=== PATIENT | male | born 1945 ===

== ENCOUNTER 2022-08-30 17:44 | Outpatient (CLI) | payer MEDICARE, BC ==
--- NOTE | 2022-08-31 12:50 | MRI Report ---
PROCEDURE: LUMBAR SPINE WO INDICATIONS: LOW BACK PAIN TECHNIQUE: Noncontrast sagittal T1 spin echo and T2 fast echo, sagittal STIR, axial T1 and T2 fast spin echo thr ough the lumbar spine. In cases with scoliosis, additional coronal T2 fast spin echo may be performe d. COMPARISON: None. FINDINGS: Image quality: Excellent. Alignment and Curvature: Mild levoconvex scoliotic curvature is seen. Minimal retrolisthesis can be seen at the L2-L3 and the L3-L4 levels. Bone Marrow: Marrow is of normal overall signal. No acute vertebral body compression fractures. Th ere is a remote appearing L1 anterior wedge deformity, with 40-50% loss of height anteriorly. Relativ perfecto prominent edema can be seen within the L3 and within the posterior superior aspect of the L4 vert ebral body. Spinal Cord: Conus medullaris terminates at the L1 level. Visualized cord demonstrates normal signa l and size. Paraspinous Soft Tissues: No paravertebral masses. This patient has transitional anatomy. For the purposes of this examination, the level with the last well-developed pair of ribs is considered to be T12. By this summary scheme, there is a transitional, rudimentary L5-S1 disc. T12-L1: Normal in appearance. L1-L2: No significant abnormality is seen. L2-L3: Mild to moderate loss of disc height and disc signal can be seen. Moderate disc bulge is s een at this level. Moderate facet hypertrophy is seen. Moderate bilateral neural foraminal narrow ing is seen. Moderate central canal narrowing is seen. L3-L4: Moderate loss of disc height and signal are seen. Moderate disc bulge is seen at this level . A superimposed central disc protrusion is seen. At least moderate facet hypertrophy is seen. Moder ate to severe bilateral neural foraminal narrowing can be seen, with associated compression upon the exiting nerve roots. Moderate to severe central canal narrowing is seen, as on series 9 image 10. L4-L5: Moderate to severe loss of disc height and disc signal, which is worse on the right side. M oderate disc bulge is seen at this level. There is apparent prior postoperative change with removal of portions the posterior elements. However, please correlate with known patient history. Moderate to prominent facet hypertrophy is seen at this level. Moderate to severe bilateral neural foraminal pablo rowing can be seen, with associated compression upon the exiting nerve roots. Mild central canal na rrowing is seen. L5-S1: Moderate to severe loss of disc height and disc signal can be seen. Moderate disc bulge is seen at this level. Moderate facet hypertrophy is seen. There is at least moderate bilateral neuro foraminal narrowing seen, left worse than right. Prior removal of portions of the posterior elements can be seen. No significant central canal narrowing is seen. 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 Bone marrow edema can be seen within L3 and L4, which is attributed to degenerative change, with reac tive edema. Underlying infection is possible, yet considered to be less likely. If clinically appropr iate, please consider a short-term follow-up lumbar MRI, performed without and with IV contrast. Several sites of significant neuroforaminal narrowing can be seen, with associated exiting nerve root compression. Postoperative changes are seen inferiorly, with removal of portions of the posterior elements. There is a remote L1 anterior wedge deformity seen. Mild levoconvex scoliotic curvature is seen. Reviewed by: Diaz Kinsey MD on 08/31/2022 11:49 AM ANGELINE Approved by: Diaz Kinsey MD on 08/31/2022 11:49 AM ANGELINE Station ID: [id number]
== END 2022-08-30 17:45 | disposition home or self-care (01) ==
LOC: DI 17:44
PROVIDERS: ATTEND Internal Medicine
DX: M51.26 Other intervertebral disc displacement, lumbar region (principal); M51.36 Other intervertebral disc degeneration, lumbar region; M48.061 Spinal stenosis, lumbar region without neurogenic claudication; M47.816 Spondylosis without myelopathy or radiculopathy, lumbar region; M51.37 Other intervertebral disc degeneration, lumbosacral region; M48.07 Spinal stenosis, lumbosacral region; M41.9 Scoliosis, unspecified